=== PATIENT | female | born 1930 | race Two or more races ===

== ENCOUNTER 2019-02-05 15:01 | Inpatient (IN) | payer OTHER ==
[~2019-02-05] VITALS: Ht 152.4 cm; Wt 49.0 kg
[2019-02-05 17:10] LABS: BASOPHILS % 0.3 % (0.0-2.0); EOSINOPHILS % 2.4 % (0.0-5.0); HEMATOCRIT. 31.7 % (36.0-48.0); HEMOGLOBIN. 10.6 g/dL (12.0-16.0); LYMPHOCYTES % 17.2 % (20.0-50.0); MEAN CORPUSCULAR HEMOGLOBIN 31.6 pg (28.0-32.0); MEAN CORPUSCULAR VOLUME 94.5 fL (81.0-99.0); MEAN PLATELET VOLUME 7.5 fl (7.4-10.4); MONOCYTES % 5.3 % (2.0-8.0); NEUTROPHILS % 74.8 % (40.0-76.0); PLATELET 259 x1000/uL (130-400); RED BLOOD CELL COUNT 3.35 mill/uL (4.2-5.4); RED CELL DISTRIBUTION WIDTH 14.7 % (11.6-14.6)
[2019-02-05 17:12] LABS: INR 1.1; PROTHROMBIN TIME 11.5 sec (9.6-11.0)
[2019-02-05 17:20] LABS: CHLORIDE 102 mEq/L (98-107)
[2019-02-05] MEDS ORDERED: ALBUTEROL (0.083%) 2.5MG/3ML NEB HHN STA (18:42)
[2019-02-05] MEDS ORDERED: POTASSIUM CHLORIDE 20MEQ TABLET SR PO ONE (18:45)
[2019-02-05] MEDS ORDERED: LEVOFLOXACIN 500MG PREMIX 100 ML IV ONE (18:45)
[2019-02-05] MEDS ORDERED: FUROSEMIDE 20MG/2ML VIAL IVP ONE (18:45)
[2019-02-05] MEDS ORDERED: CLONIDINE 0.1MG TABLET PO PRN (21:45)
[2019-02-05] MEDS ORDERED: ONDANSETRON HCL 4MG/2ML INJ IV PRN (21:45)
[2019-02-05] MEDS ORDERED: DOCUSATE SODIUM 100MG CAPSULE PO PRN (21:45)
[2019-02-05] MEDS ORDERED: GUAIFENESIN 200MG/10ML SUGAR FREE UDC PO PRN (21:45)
[2019-02-05] MEDS ORDERED: ACETAMINOPHEN 325MG TABLET PO PRN (21:45)
[2019-02-05] MEDS ORDERED: ENOXAPARIN 60MG/0.6ML SYR SUBCUT ONE (23:00)
[2019-02-06 00:42] VITALS: BP 136/86
[2019-02-06] MEDS ORDERED: METOPROLOL PO (02:45)
[2019-02-06] MEDS ORDERED: FUROSE PO (02:45)
[2019-02-06] MEDS ORDERED: [UNRECOGNIZED DRUG - CODE] PO (02:45)
[2019-02-06] MEDS ORDERED: ISOSORBIDE PO (02:45)
[2019-02-06] MEDS ORDERED: ATOR PO (02:45)
[2019-02-06] MEDS ORDERED: ELIQUIS PO (02:45)
[2019-02-06] MEDS ORDERED: TRAMADOL PO (02:45)
[2019-02-06] MEDS ORDERED: [UNRECOGNIZED DRUG - CODE] PO (02:45)
[2019-02-06] MEDS ORDERED: [UNRECOGNIZED DRUG - OTHER] PO (02:45)
[2019-02-06] MEDS ORDERED: SOTALOL PO (02:47)
[2019-02-06] MEDS ORDERED: MEMANTINE PO (02:51)
[2019-02-06] MEDS ORDERED: FUROSEMIDE PO (02:51)
[2019-02-06] MEDS ORDERED: ATORVASTATIN PO (02:51)
[2019-02-06] MEDS ORDERED: AZATHIOPRINE PO (02:51)
[2019-02-06 04:00] VITALS: BP 115/61
[2019-02-06 06:37] LABS: BASOPHILS % 0.2 % (0.0-2.0); EOSINOPHILS % 1.4 % (0.0-5.0); HEMATOCRIT. 30.6 % (36.0-48.0); HEMOGLOBIN. 10.2 g/dL (12.0-16.0); LYMPHOCYTES % 12.6 % (20.0-50.0); MEAN CORPUSCULAR HEMOGLOBIN 31.4 pg (28.0-32.0); MEAN CORPUSCULAR VOLUME 94.4 fL (81.0-99.0); MEAN PLATELET VOLUME 7.8 fl (7.4-10.4); MONOCYTES % 6.5 % (2.0-8.0); NEUTROPHILS % 79.3 % (40.0-76.0); PLATELET 258 x1000/uL (130-400); RED BLOOD CELL COUNT 3.24 mill/uL (4.2-5.4); RED CELL DISTRIBUTION WIDTH 14.2 % (11.6-14.6)
[2019-02-06 06:41] LABS: PHOSPHORUS 3.5 mg/dL (2.5-4.9)
[2019-02-06 06:43] LABS: T4 FREE 1.36 ng/dL (0.76-1.46)
[2019-02-06] MEDS ORDERED: ENOXAPARIN 60MG/0.6ML SYR SUBCUT SCH ×2 (08:00→21:00)
[2019-02-06] MEDS: SODIUM CHLORIDE 0.45% 1,000 ML IV SCH (13:15)
[2019-02-06] MEDS ORDERED: METOPROLOL TARTRATE 25MG TABLET PO NR (13:30)
[2019-02-06] MEDS ORDERED: DOCUSATE SODIUM 100MG CAPSULE PO PRN (14:45)
[2019-02-06] MEDS ORDERED: TEMAZEPAM 15MG CAPSULE PO PRN (14:45)
[2019-02-06] MEDS ORDERED: HYDROCODONE/ACETAMINOPHEN 5/325MG TABLET PO PRN (14:45)
[2019-02-06] MEDS ORDERED: MAGNESIUM/ALUMINUM HYDROXIDE/SIMETHICONE 30ML UDC PO PRN (14:45)
[2019-02-06] MEDS ORDERED: DIPHENHYDRAMINE 50MG/ML VIAL IV PRN (14:45)
[2019-02-06 14:47] LABS: BG BASE EXCESS 4.7 mmol/L (-2.0-2.0); BG CARBOXYHEMOGLOBIN 0.4 % (0.5-1.5); BG DEOXYHEMOGLOBIN 3.4 % (0.0-5.0); BG FRACTION INSPIRED OXYGEN 21; BG HCO3 ACT 28.7 mmol/L (22.0-26.0); BG METHEMOGLOBIN 0.1 % (0.0-1.5); BG OXYGEN SATURATION 96.6 % (92.0-98.5); BG OXYHEMOGLOBIN 96.1 % (94.0-97.0); BG PCO2 40.5 mmHg (35.0-45.0); BG PH 7.469 (7.350-7.450); BG PO2 90.1 mmHg (75.0-100.0); BG SAMPLE SITE RIGHT BRACHIAL; BG TOTAL HEMOGLOBIN 11.7 g/dL (12.0-18.0); BG VENT MODE ROOM AIR
[2019-02-06 16:00] VITALS: BP 98/48
[2019-02-06] MEDS: IPRATROPIUM/ALBUTEROL 0.5-3(2.5)MG/3ML NEB HHN SCH ×2 (16:07→20:26)
[2019-02-06] MEDS: PIPERACILLIN/TAZ 2.25G PREMIX 50 ML IV SCH (17:19)
[2019-02-06] MEDS: METHYLPREDNISOLONE SOD SUCC 40 MG/ML VIAL IV SCH (17:20)
[2019-02-06 20:00] VITALS: BP 109/49
[2019-02-06] MEDS: METOPROLOL TARTRATE 25MG TABLET PO SCH (21:00)
[2019-02-07] VITALS (8 sets, daily range): BP systolic 104–122; BP diastolic 42–77
[2019-02-07] MEDS: IPRATROPIUM/ALBUTEROL 0.5-3(2.5)MG/3ML NEB HHN SCH ×4 (01:38→20:37)
[2019-02-07] MEDS: PIPERACILLIN/TAZ 2.25G PREMIX 50 ML IV SCH ×3 (03:43→18:39)
[2019-02-07] MEDS: METHYLPREDNISOLONE SOD SUCC 40 MG/ML VIAL IV SCH (05:25)
[2019-02-07 07:40] LABS: BASOPHILS % 0.3 % (0.0-2.0); HEMATOCRIT. 29.8 % (36.0-48.0); HEMOGLOBIN. 9.9 g/dL (12.0-16.0); LYMPHOCYTES % 7.9 % (20.0-50.0); MEAN CORPUSCULAR HEMOGLOBIN 31.5 pg (28.0-32.0); MEAN CORPUSCULAR VOLUME 94.5 fL (81.0-99.0); MEAN PLATELET VOLUME 7.4 fl (7.4-10.4); MONOCYTES % 3.3 % (2.0-8.0); NEUTROPHILS % 88.5 % (40.0-76.0); PLATELET 245 x1000/uL (130-400); RED BLOOD CELL COUNT 3.15 mill/uL (4.2-5.4); RED CELL DISTRIBUTION WIDTH 14.2 % (11.6-14.6)
[2019-02-07] MEDS: METOPROLOL TARTRATE 25MG TABLET PO SCH ×2 (10:06→21:00)
[2019-02-07] MEDS: SODIUM CHLORIDE 0.45% 1,000 ML IV SCH (10:07)
[2019-02-07] MEDS ORDERED: TEMAZEPAM 15MG CAPSULE PO PRN (16:45)
[2019-02-08] VITALS (10 sets, daily range): BP systolic 96–134; BP diastolic 51–72
[2019-02-08] MEDS: IPRATROPIUM/ALBUTEROL 0.5-3(2.5)MG/3ML NEB HHN SCH ×2 (01:21→09:09)
[2019-02-08] MEDS: PIPERACILLIN/TAZ 2.25G PREMIX 50 ML IV SCH ×3 (03:27→18:48)
[2019-02-08 07:18] LABS: BASOPHILS % 0.2 % (0.0-2.0); EOSINOPHILS % 0.5 % (0.0-5.0); HEMATOCRIT. 28.7 % (36.0-48.0); HEMOGLOBIN. 9.8 g/dL (12.0-16.0); LYMPHOCYTES % 18.5 % (20.0-50.0); MEAN CORPUSCULAR HEMOGLOBIN 31.8 pg (28.0-32.0); MEAN CORPUSCULAR VOLUME 93.3 fL (81.0-99.0); MEAN PLATELET VOLUME 7.2 fl (7.4-10.4); MONOCYTES % 5.1 % (2.0-8.0); NEUTROPHILS % 75.7 % (40.0-76.0); PLATELET 263 x1000/uL (130-400); RED BLOOD CELL COUNT 3.08 mill/uL (4.2-5.4); RED CELL DISTRIBUTION WIDTH 14.2 % (11.6-14.6)
[2019-02-08] MEDS: METHYLPREDNISOLONE SOD SUCC 40 MG/ML VIAL IV SCH (09:00)
[2019-02-08] MEDS: METOPROLOL TARTRATE 25MG TABLET PO SCH ×2 (09:00→20:57)
[2019-02-08] MEDS ORDERED: METHYLPREDNISOLONE SOD SUCC 125 MG/2 ML VIAL IV NR (09:42)
[2019-02-08] MEDS ORDERED: DIPHENHYDRAMINE 50MG/ML VIAL IV NR (09:45)
[2019-02-08] MEDS ORDERED: DIGOXIN 500MCG/2ML AMP IV NR ×2 (10:45→11:43)
[2019-02-08] MEDS ORDERED: SODIUM CHLORIDE 0.45% 250 ML IV SCH (10:45)
[2019-02-08] MEDS: SODIUM CHLORIDE 0.45% 1,000 ML IV SCH (11:30)
[2019-02-08] MEDS ORDERED: SODIUM BICARBONATE 4% (2.4MEQ) 5ML VIAL IV ONE (14:16)
[2019-02-08] MEDS ORDERED: IOHEXOL-300 100 ML BOTTLE ONE (14:16)
[2019-02-08] MEDS ORDERED: LIDOCAINE HCL 1% 20ML VIAL (Pyxis) INJ ONE (14:16)
[2019-02-08] MEDS ORDERED: TEMAZEPAM 15MG CAPSULE PO PRN (14:45)
[2019-02-08] MEDS ORDERED: IODIXANOL 320MG/ML 100 ML BOTTLE IV ONE (14:46)
[2019-02-09] MEDS: SODIUM CHLORIDE 0.45% 1,000 ML IV SCH ×2 (00:06→14:10)
[2019-02-09] MEDS: PIPERACILLIN/TAZ 2.25G PREMIX 50 ML IV SCH ×2 (03:03→09:55)
[2019-02-09 03:53] VITALS: BP 130/49
[2019-02-09 06:50] LABS: BASOPHILS % 0.3 % (0.0-2.0); HEMATOCRIT. 26.4 % (36.0-48.0); HEMOGLOBIN. 9.1 g/dL (12.0-16.0); MEAN CORPUSCULAR HEMOGLOBIN 32.3 pg (28.0-32.0); MEAN CORPUSCULAR VOLUME 93.4 fL (81.0-99.0); MEAN PLATELET VOLUME 7.4 fl (7.4-10.4); MONOCYTES % 4.6 % (2.0-8.0); NEUTROPHILS % 84.1 % (40.0-76.0); PLATELET 266 x1000/uL (130-400); RED BLOOD CELL COUNT 2.82 mill/uL (4.2-5.4); RED CELL DISTRIBUTION WIDTH 14.5 % (11.6-14.6)
[2019-02-09 07:20] LABS: DIGOXIN 0.4 ng/mL (0.9-2.0)
[2019-02-09 08:00] VITALS: BP 132/59
[2019-02-09] MEDS: METOPROLOL TARTRATE 25MG TABLET PO SCH (09:52)
[2019-02-09] MEDS: METHYLPREDNISOLONE SOD SUCC 40 MG/ML VIAL IV SCH (09:52)
[2019-02-09 12:00] VITALS: BP 127/43
[2019-02-09 12:45] VITALS: BP 132/80
[2019-02-15 17:06] LABS: QFT MITOGEN VALUE 0.07 IU/mL (.); QFT TB GOLD PLUS Indeterminate (Negative); QFT TB1 AG VALUE 0.02 IU/mL (.)
== END 2019-02-09 13:10 | disposition home or self-care (01) | DRG 802 ==
LOC: ER 15:01 → 6WST 18:52 → EDBEDREQ 18:56 → ENRESERV 21:38
PROVIDERS: ADMIT Internal Medicine; ATTEND Internal Medicine
PROC: 06H03DZ Insertion of Intraluminal Device into Inferior Vena Cava, Percutaneous Approach (ICD-10-PCS; principal; 2019-02-08)
DX: D68.32 Hemorrhagic disorder due to extrinsic circulating anticoagulants (principal); J18.9 Pneumonia, unspecified organism; N18.6 End stage renal disease; I50.43 Acute on chronic combined systolic (congestive) and diastolic (congestive) heart failure; I26.99 Other pulmonary embolism without acute cor pulmonale; R04.2 Hemoptysis; I82.413 Acute embolism and thrombosis of femoral vein, bilateral; I13.2 Hypertensive heart and chronic kidney disease with heart failure and with stage 5 chronic kidney disease, or end stage renal disease; D68.59 Other primary thrombophilia; J44.0 Chronic obstructive pulmonary disease with (acute) lower respiratory infection; E44.0 Moderate protein-calorie malnutrition; T45.525A Adverse effect of antithrombotic drugs, initial encounter; D64.9 Anemia, unspecified; E78.5 Hyperlipidemia, unspecified; E86.0 Dehydration; I25.10 Atherosclerotic heart disease of native coronary artery without angina pectoris; L98.8 Other specified disorders of the skin and subcutaneous tissue; R74.0 Nonspecific elevation of levels of transaminase and lactic acid dehydrogenase [LDH]; I45.10 Unspecified right bundle-branch block; F03.90 Unspecified dementia, unspecified severity, without behavioral disturbance, psychotic disturbance, mood disturbance, and anxiety; I27.20 Pulmonary hypertension, unspecified; I48.0 Paroxysmal atrial fibrillation; Z79.01 Long term (current) use of anticoagulants; Z87.01 Personal history of pneumonia (recurrent); I25.2 Old myocardial infarction; Z86.73 Personal history of transient ischemic attack (TIA), and cerebral infarction without residual deficits; Z90.5 Acquired absence of kidney; Z90.710 Acquired absence of both cervix and uterus; Z91.041 Radiographic dye allergy status; Z68.21 Body mass index [BMI] 21.0-21.9, adult
CPT/HCPCS: 36415; 36600; 37191; 71045; 71250; 78582; 80048; 80061; 80162; 82375; 82805; 82962; 83605; 83735; 83880; 84100; 84134; 84439; 84443; 84481; 84484; 86480; 86850; 86900; 93005; 93306; 93970; 94640; 96374; 97161; 99291; A6261; A9558; C1880; C1893; J1160; J1200; J1644; J1650; J1940; J1956; J2543; J2920; J2930; J3490; J7040; J7050; J7611; J7620; Q9967